=== PATIENT | male | born 1950 | race Caucasian/White ===

== ENCOUNTER 2021-01-27 08:06 | Emergency (ER) | payer SELFPAY ==
[~2021-01-27] VITALS: Ht 190.5 cm; Wt 106.1 kg
[2021-01-27] MEDS ORDERED: ASPIRIN325 MG PO (08:26)
[2021-01-27] MEDS ORDERED: AUGMENTIN 875-1 EACH PO (09:31)
--- OUTSIDE RECORDS SUMMARY | 2021-01-27 11:42 | XMS ---
PreManage Notification: MARK COLIN [employer] Advocate Events No recent Security Events currently on file CRITERIA MET - COVID-19 Positive Lab Results CARE PROVIDERS There are no care providers on record at this time. Carri has no Care Guidelines for this patient. Shari VISIT COUNT (12 MO.) 1 [facility] TOTAL 1 NOTE: Visits indicate total known visits. ED/C VISIT TRACKING (12 MO.) 01/27/2021 08:07 [facility] TYPE: Emergency COMPLAINT: - NOSE BLEED INPATIENT VISIT TRACKING (12 MO.) No inpatient visits to display in this time frame [email or web address]
== END 2021-01-27 09:47 | disposition home or self-care (01) ==
LOC: ED 08:06
DX: R04.0 Epistaxis (principal); Z79.82 Long term (current) use of aspirin
CPT/HCPCS: 30903; 99283-25